=== PATIENT | male | born 1975 | race American Indian/Alaskan Native ===

== ENCOUNTER 2020-01-12 23:10 | Inpatient (IN) | payer OTHER ==
--- NOTE | 2020-01-12 23:19 | Emergency Department Report ---
ED Chest Pain HPI - General Chief Complaint: Chest Pain Stated Complaint: CHEST PAIN Time Seen by Provider: 01/12/20 23:16 Source: patient, EMS ( EMS documentation not available at time of chart dictation ), RN notes reviewed Mode of arrival: Stretcher Limitations: No Limitations - History of Present Illness Initial Comments: Patient is a 45-year-old gentleman. The patient is not known to myself previously. He reports a history of elevated blood pressure, diagnosed in [place] last year, however, he does not take antihypertensive medication at this time. Denies fever, cough, exposure to coronavirus. Presents to the ER with a complaint of 3 hours continuous chest pain, central, right-sided, left-sided. There is associated nausea, vomited x1. He reports that the chest pain does not radiate anywhere. He denies DVT and pulmonary embolism risk factors. There is no abdominal pain. There is no family history of heart disease, DVT or pulmonary embolism that he is aware of. He smokes tobacco, and occasional marijuana. There is no recent aspirin consumption. There is no complaint of abdominal pain, fever, neck pain, exertional shortness of breath, diaphoresis, leg pain, leg swelling. MD Complaint: chest pain, other -: Sudden Onset: during rest Pain Location: substernal, left chest, right chest Pain Radiation: none Severity: moderate Quality: aching Consistency: constant Improves With: nothing Worsens With: nothing Aspirin use within the Past 7 Days: (0) No - Related Data On Oral Contraceptives: No Allergies Allergy/AdvReac Type Severity Reaction Status Date / Time No Known Allergies Allergy Unverified 01/12/20 23:16 Heart Score - HEART Score History: Slightly suspicious EKG: Non-specific Age: < 45 Risk factors: 1-2 risk factors Troponin: 1-3x normal limit HEART Score: 3 - Critical Actions Critical Actions: 0-3 pts:0.9-1.7%risk of adverse cardiac event.Candidate for discharge ED Review of Systems ROS: Stated complaint: CHEST PAIN Other details as noted in HPI Constitutional: denies: fever Eyes: denies: eye discharge ENT: denies: congestion Respiratory: denies: wheezing Cardiovascular: chest pain, palpitations. denies: syncope Gastrointestinal: nausea, vomiting. denies: hematemesis, melena, hematochezia Genitourinary: as per HPI Musculoskeletal: as per HPI Skin: as per HPI Neurological: as per HPI Psychiatric: as per HPI Hematological/Lymphatic: as per HPI ED Past Medical Hx - Past Medical History Hx Hypertension: Yes - Surgical History Past Surgical History?: No - Social History Smoking Status: Current Every Day Smoker ED Physical Exam - General Limitations: No Limitations General appearance: alert, anxious - Head Head exam: Present: atraumatic, normocephalic - Eye Eye exam: Present: normal appearance, EOMI. Absent: nystagmus - ENT ENT exam: Present: normal exam, normal orophraynx, mucous membranes moist, normal external ear exam - Neck Neck exam: Present: normal inspection, full ROM. Absent: tenderness, meningismus - Respiratory Respiratory exam: Present: normal lung sounds bilaterally. Absent: respiratory distress - Cardiovascular Cardiovascular Exam: Present: normal rhythm, tachycardia, normal heart sounds. Absent: systolic murmur, diastolic murmur, rubs, gallop - GI/Abdominal GI/Abdominal exam: Present: soft. Absent: distended, tenderness, guarding, rebound, rigid, pulsatile mass - Rectal Rectal exam: Present: deferred - Extremities Exam Extremities exam: Present: normal inspection, full ROM, other (2+ pulses noted in the bilateral upper and lower extremities. There is no palpable cord. negative Homans sign. Muscular compartments are soft. The pelvis is stable.). Absent: pedal edema, calf tenderness - Back Exam Back exam: Present: normal inspection, full ROM. Absent: tenderness, CVA tenderness (R), CVA tenderness (L), paraspinal tenderness, vertebral tenderness - Neurological Exam Neurological exam: Present: alert, other (There is no facial droop. The tongue is midline. Extraocular movements are intact bilaterally. There is 5 out of 5 strength in bilateral upper and lower extremities. Sensation is intact to light touch bilateral upper and lower extremities. ). Absent: motor sensory deficit - Psychiatric Psychiatric exam: Present: anxious - Skin Skin exam: Present: warm, dry, intact, normal color. Absent: rash ED Course Vital Signs 01/12/20 01/12/20 01/12/20 23:23 23:32 23:34 Temperature 98.4 F Pulse Rate 104 H 122 H 139 H Respiratory 22 22 Rate Blood Pressure Blood Pressure 164/97 [Right] O2 Sat by Pulse 98 Oximetry 01/13/20 01/13/20 01/13/20 00:14 01:14 03:50 Temperature Pulse Rate 121 H Respiratory 18 Rate Blood Pressure 164/97 169/100 Blood Pressure [Right] O2 Sat by Pulse 99 100 Oximetry - Reevaluation(s) Reevaluation #1: 01/12/20 23:58 Differential diagnosis, including but not limited to: GERD, gastritis, hiatal hernia, pneumonia, acute coronary syndrome, pulmonary embolism, anxiety Assessment and plan: 45-year-old gentleman with a past history of elevated blood pressure, question formal diagnosis of hypertension as his hypertension diagnosis came from work-related screening, with no reported pulmonary embolism or DVT risk factors, who is low risk by Wells criteria, with constant chest pain, right-sided, left-sided and central for 3 hours. He does not endorse any cough, fever, or coronavirus exposure. We will treat his symptoms, obtain basic laboratory studies, place patient on a monitor worker, and reassess. Assuming negative troponin multiple times, we would consider the patient to be low risk for major adverse cardiac event as per the heart score. Uncertain if tachycardia physiologic compensation, or anxiety, or both. Therefore, he will be given a trial dose of Ativan. Reevaluation #2: 01/13/20 01:40 Heart rate came down to 104 bpm, and increased to 130 bpm. Patient endorsed to nursing staff that he has binocular blurry vision. He was found to have an Accu-Chek of 55 and given glucose. I went back to reevaluate the patient, and he said that he was still having binocular blurry vision. He estimates that this is been going on for around 2 hours. On my examination, his pupils are dilated, but constrict to light, extraocular movements are intact bilaterally, visual acuity is intact to finger counting, color perception, and reading at a c lose distance, however, the patient is insistent that his vision is qualitatively changes. At the moment, he has an NIH score of 0. Code stroke called overhead, neurology consultation requested emergently, and CT scan of the brain will be obtained. Reevaluation #3: 01/13/20 03:14 Repeat EKG unchanged from prior. Persistently tachycardic. Patient ate a complete meal. CT scan of the brain negative. 01/13/20 04:09 CT angiogram head and neck are negative for dissection and large vessel occlusion as expected. Patient has persistent tachycardia. He endorses that his vision feels somewhat improved. Repeat troponin is elevated and positive. I suspect that this is a type II troponin leak. On reevaluation, the patient did admit to recreational crack, cocaine, methamphetamine consumption 3 days ago. He is not currently homicidal or suicidal, and he is amenable to hospitalization for observation and monitoring. Given persistent tachycardia, the patient may result from continued and titrated doses of benzodiazepines, or beta-blockers, in addition to r blood pressure control, and glycemic monitoring. Because I believe this is a type II troponin leak, I do not believe the patient will benefit from systemic anticoagulation, and indeed with his persistent tachycardia and hypertension, recent sympathomimetic ingestion, initiation of systemic anticoagulation may place the patient at risk for bleeding, without significant clinical benefit. Patient is presented to the hospital physician, Dr. Harika Denis, who has accepted the patient to the medical service for his multiple ongoing issues. DEDRICK score - Dedrick Score Age > 65: (0) No Aspirin use within the Past 7 Days: (0) No 3 or more CAD Risk Factors: (0) No 2 or more Angina events in past 24 hrs: (0) No Known CAD with more than 50% Stenosis: (0) No Elevated Cardiac Markers: (1) Yes ST Deviation Greater than 0.5mm: (0) No DEDRICK Score: 1 ED Medical Decision Making - Lab Data Result diagrams: 01/13/20 05:25 01/13/20 05:25 Vital Signs 01/12/20 01/12/20 23:32 23:34 Temperature 98.4 F Pulse Rate 122 H 139 H Respiratory 22 Rate Blood Pressure 164/97 [Right] O2 Sat by Pulse 98 Oximetry Vital Signs 01/12/20 01/12/20 01/12/20 23:23 23:32 23:34 Temperature 98.4 F Pulse Rate 104 H 122 H 139 H Respiratory 22 22 Rate Blood Pressure Blood Pressure 164/97 [Right] O2 Sat by Pulse 98 Oximetry 01/13/20 00:14 Temperature Pulse Rate Respiratory Rate Blood Pressure 164/97 Blood Pressure [Right] O2 Sat by Pulse 99 Oximetry Lab Results 01/13/20 01/13/20 01/13/20 Range/Units 00:02 00:02 00:02 WBC 10.6 (4.5-11.0) K/mm3 RBC 4.36 (3.65-5.03) M/mm3 Hgb 14.6 (11.8-15.2) gm/dl Hct 41.6 (35.5-45.6) % MCV 95 H (84-94) fl MCH 33 H (28-32) pg MCHC 35 H (32-34) % RDW 14.1 (13.2-15.2) % Plt Count 324 (140-440) K/mm3 Lymph % (Auto) 14.9 (13.4-35.0) % C[place]ra % (Auto) 10.4 H (0.0-7.3) % Eos % (Auto) 0.4 (0.0-4.3) % Baso % (Auto) 0.5 (0.0-1.8) % Lymph # 1.6 (1.2-5.4) K/mm3 Cidra # 1.1 H (0.0-0.8) K/mm3 Eos # 0.0 (0.0-0.4) K/mm3 Baso # 0.1 (0.0-0.1) K/mm3 Seg Neutrophils % 73.8 H (40.0-70.0) % Seg Neutrophils # 7.8 H (1.8-7.7) K/mm3 PT 11.5 L (12.2-14.9) Sec. INR 0.83 L (0.87-1.13) APTT 31.2 (24.2-36.6) Sec. D-Dimer 190.39 (0-234) ng/mlDDU Sodium 139 (137-145) mmol/L Potassium 3.8 (3.6-5.0) mmol/L Chloride 101.5 (98-107) mmol/L Carbon Dioxide 20 L (22-30) mmol/L Anion Gap 21 mmol/L BUN 17 (9-20) mg/dL Creatinine 1.2 (0.8-1.5) mg/dL Estimated GFR > 60 ml/min BUN/Creatinine Ratio 14 % Glucose 80 (75-100) mg/dL POC Glucose (70-105) Calcium 9.9 (8.4-10.2) mg/dL Magnesium 2.40 H (1.7-2.3) mg/dL Total Bilirubin 0.40 (0.1-1.2) mg/dL AST 23 (5-40) units/L ALT 19 (7-56) units/L Alkaline Phosphatase 118 (35-129) units/L Total Creatine Kinase 343 H (55-170) units/L Troponin T 0.025 (0.00-0.029) ng/mL Total Protein 8.0 (6.3-8.2) g/dL Albumin 4.8 (3.9-5) g/dL Albumin/Globulin Ratio 1.5 % Lipase 20 (13-60) units/L 01/13/20 Range/Units 01:18 WBC (4.5-11.0) K/mm3 RBC (3.65-5.03) M/mm3 Hgb (11.8-15.2) gm/dl Hct (35.5-45.6) % MCV (84-94) fl MCH (28-32) pg MCHC (32-34) % RDW (13.2-15.2) % Plt Count (140-440) K/mm3 Lymph % (Auto) (13.4-35.0) % [place] % (Auto) (0.0-7.3) % Eos % (Auto) (0.0-4.3) % Baso % (Auto) (0.0-1.8) % Lymph # (1.2-5.4) K/mm3 [place] # (0.0-0.8) K/mm3 Eos # (0.0-0.4) K/mm3 Baso # (0.0-0.1) K/mm3 Seg Neutrophils % (40.0-70.0) % Seg Neutrophils # (1.8-7.7) K/mm3 PT (12.2-14.9) Sec. INR (0.87-1.13) APTT (24.2-36.6) Sec. D-Dimer (0-234) ng/mlDDU Sodium (137-145) mmol/L Potassium (3.6-5.0) mmol/L Chloride (98-107) mmol/L Carbon Dioxide (22-30) mmol/L Anion Gap mmol/L BUN (9-20) mg/dL Creatinine (0.8-1.5) mg/dL Estimated GFR ml/min BUN/Creatinine Ratio % Glucose (75-100) mg/dL POC Glucose 55 L (70-105) Calcium (8.4-10.2) mg/dL Magnesium (1.7-2.3) mg/dL Total Bilirubin (0.1-1.2) mg/dL AST (5-40) units/L ALT (7-56) units/L Alkaline Phosphatase (35-129) units/L Total Creatine Kinase (55-170) units/L Troponin T (0.00-0.029) ng/mL Total Protein (6.3-8.2) g/dL Albumin (3.9-5) g/dL Albumin/Globulin Ratio % Lipase (13-60) units/L - EKG Data -: EKG Interpreted by Me EKG shows normal: sinus rhythm Rate: tachycardia - EKG Data When compared to previous EKG there are: previous EKG unavailable 01/12/20 23:57 There is no prior EKG available for comparison. Sinus rhythm, tachycardia, 122 bpm, normal axis, QTC 482 ms, high left ventricular voltage, not a STEMI, there is no prior for comparison. - Radiology Data Radiology results: pending, report reviewed, image reviewed interpreted by me: Portable 1 view x-ray of the chest is negative for acute disease TECHNIQUE: Following acquisition of a timing bolus 0.625 mm thick contiguous axial scans were obtained from aortic arch to the skull base during rapid bolus intravenous contrast infusion. In addition to evaluation of axial source images multiplanar reconstructions were produced and reviewed for this report. 3 plane MIP reconstructions were produced and reviewed. Contrast dose report: Omnipaque 350: 100 mL administered intravenously. FINDINGS: Thoracic aorta:No abnormali ties are identified along the course of the thoracic aorta..The origins of the great vessels have an unremarkable appearance. Brachiocephalic artery, left common carotid artery origin and left subclavian artery all have an unremarkable appearance. Right carotid artery:No abnormalities are seen along the course of the RCCA, at the right carotid bifurcation or along the cervical portions of the MODESTA. Left carotid artery: No abnormalities are noted along the course of the left common carotid artery, at the left carotid bifurcation or along the course of the cervical segments of the LICA. Posterior circulation:The vertebral arteries have an unremarkable appearance. Both vertebral arteries con tribute to the basilar artery origin. The basilar artery has an unremarkable appearance. The degree of stenosis, if any, is determined utilizing NASCET like criteria. In this case there is no indication of hemodynamically significant stenosis at the carotid bifurcations or elsewhere. Evaluation of the nonvascular soft tissue is remarkable for the presence of multiple cervical lymph nodes. Lymph nodes are identified in level 1B and level 2 bilaterally. The largest of these is a left-sided level 2 lymph node measuring about 1.7 x 1.6 x 1.2 cm in size. The cervical lymph nodes are borderline in size but numerous lymph nodes are present. In addition there is a superior mediastinal mass measuring about 3.6 x 2.9 x 3.4 cm in size. Possibility of lymphoid neoplasia must be considered. Soft tissue neck has an otherwise unremarkable appearance. Lungs are free from infiltrate. No lung nodules are identified. No abnormalities are seen along the course of the airway. Thyroid gland has an unremarkable appearance as do the parotid and submandibular salivary glands. Evaluation of the cervical spine remarkable for moderate cervical spondylosis without evidence of central canal stenosis. IMPRESSION: 1. No indication of hemodynamically significant stenosis at the carotid bifurcations or elsewhere. 2. Multifocal cervical lymph nodes and large anterior mediastinal mass. Possibility of lymphoi d neoplasia must be considered. All CT examinations performed at this facility utilize modulated dose reduction, iterative reconstruction or weight-based dosing, as appropriate, to obtain a radiation dose which is as low as can reasonably be achieved. Signer Name: Justino Nino MD Signed: 01/13/2020 2:52 AM Workstation Name: [id number] Print Report Referring Physician: DIAMOND RODRIGUEZ Patient Name: QUIRINO FRANK Date of : 1975 Sex: Male Report Date: 2020-01-13 Report Status: Finalized Findings [address] [address] Cat Scan Report Signed Patient: QUIRINO FRANK MR#: [id number] 21 : 1975 Acct:[id number] Age/Sex: 45 / M ADM Date: 01/12/20 Loc: ED Attending Dr: Polly gillespie Physician: DIAMOND RODRIGUEZ MD Date of Service: 01/13/20 Procedure(s): CT head/brain wo con Accession Number(s): [id number] cc: DIAMOND RODRIGUEZ MD CT head/brain wo con INDICATION / CLINICAL INFORMATION: STROKE PROTOCOL!!! Chest pains with blurry vision. TECHNIQUE: All CT scans at this location are performed using CT dose reduction for ALARA by means of automated exposure control. COMPARISON: None available. FINDINGS: No acute intracranial hemorrhage. No signs of large territorial infarction or mass effect No abnormal extra-axial fluid collection. The ventricular system and basilar cisterns are normal. Bilateral ethmoid sinus disease is noted. No osseous abnormality IMPRESSION: 1. No acute intracranial abnormality. COMMUNICATION: Time of Communication: 0115 hours Licensed Practitioner Receiving Report: Dr. Rodriguez Signer Name: Ramon Sheehan MD Signed: 01/13/2020 2:17 AM Workstation Name: [id number] Transcribed By: ARACELIS Dictated By: Ramon Sheehan MD Electronically Authenticated By: Ramon Sheehan MD Signed Date/Time: 01/13/20216 DD/ 4 TD/TT: Critical Care Time: Yes Critical care time in (mins) excluding proc time.: 35 Critical care attestation.: If time is entered above; I have spent that time in minutes in the direct care of this critically ill patient, excluding procedure time. ED Disposition Clinical Impression: Acute chest pain, Elevated troponin, Hypoglycemia, Blurry vision Sympathomimetic adverse reaction Qualifiers: Encounter type: initial encounter Qualified Code(s): T44.905A - Adverse effect of unspecified drugs primarily affecting the autonomic nervous system, initial encounter Disposition: OP ADMIT IP TO THIS HOSP Is pt being admited?: Yes Does the pt Need Aspirin: Yes Condition: Stable
[2020-01-12] MEDS ORDERED: ONDANSETRON 4 MG/2 ML INJ IV ONE (23:52)
[2020-01-12] MEDS ORDERED: SODIUM CHLORIDE 0.9% 1000 ML 1,000 ML IV ONE (23:52)
[2020-01-12] MEDS ORDERED: FAMOTIDINE 20 MG/2 ML INJ IV ONE (23:52)
[2020-01-12] MEDS ORDERED: LORazepam 2 MG/ML VIAL IV STA (23:52)
[2020-01-13 00:26] LABS: Basophils # (Auto) 0.1 K/mm3 (0.0-0.1); Basophils % (Auto) 0.5 % (0.0-1.8); Eosinophils % (Auto) 0.4 % (0.0-4.3); Hematocrit 41.6 % (35.5-45.6); Hemoglobin 14.6 gm/dl (11.8-15.2); Lymphocytes # (Auto) 1.6 K/mm3 (1.2-5.4); Lymphocytes % (Auto) 14.9 % (13.4-35.0); Mean Corpuscular HGB Conc 35 % (32-34); Mean Corpuscular Volume 95 fl (84-94); Monocytes # (Auto) 1.1 K/mm3 (0.0-0.8); Monocytes % (Auto) 10.4 % (0.0-7.3); Platelet Count 324 K/mm3 (140-440); Red Blood Count 4.36 M/mm3 (3.65-5.03); Red Cell Distribution Width 14.1 % (13.2-15.2)
[2020-01-13 00:33] LABS: Alanine Aminotransferase 19 units/L (7-56); Albumin 4.8 g/dL (3.9-5); BUN/Creatinine Ratio 14; Blood Urea Nitrogen 17 mg/dL (9-20); Calcium 9.9 mg/dL (8.4-10.2); Hemolysis Index 10
--- NOTE | 2020-01-13 00:33 | XRay Report ---
CHEST 1 VIEW INDICATION / CLINICAL INFORMATION: cp. COMPARISON: None available. FINDINGS: SUPPORT DEVICES: None. HEART / MEDIASTINUM: No significant abnormality. LUNGS / PLEURA: No significant pulmonary or pleural abnormality. No pneumothorax. ADDITIONAL FINDINGS: No significant additional findings. IMPRESSION: 1. No acute findings. Signer Name: Ramon Sheehan MD Signed: 01/13/2020 12:29 AM Workstation Name: [id number]
[2020-01-13 00:40] LABS: INR 0.83 (0.87-1.13); Partial Thromboplastin Time 31.2 Sec. (24.2-36.6)
[2020-01-13] MEDS ORDERED: SUCRALFATE 1 GM/10 ML ORAL LIQD PO ONE (00:46)
[2020-01-13] MEDS ORDERED: DEXTROSE 50% IN WATER (25GM) 50 ML VIAL IV PRN (01:07)
--- NOTE | 2020-01-13 02:21 | Cat Scan Report ---
CT head/brain wo con INDICATION / CLINICAL INFORMATION: STROKE PROTOCOL!!! Chest pains with blurry vision. TECHNIQUE: All CT scans at this location are performed using CT dose reduction for ALARA by means of automated e xposure control. COMPARISON: None available. FINDINGS: No acute intracranial hemorrhage. No signs of large territorial infarction or mass effect No abnormal extra-axial fluid collection. The ventricular system and basilar cisterns are normal. Bilateral ethmoid sinus disease is noted. No osseous abnormality IMPRESSION: 1. No acute intracranial abnormality. COMMUNICATION: Time of Communication: 0115 hours Licensed Practitioner Receiving Report: Dr. Rodriguez Signer Name: Ramon Sheehan MD Signed: 01/13/2020 2:17 AM Workstation Name: [id number]
[2020-01-13] MEDS ORDERED: LORazepam 2 MG/ML VIAL IV STA (02:22)
--- NOTE | 2020-01-13 02:24 | Consultation ---
History of Present Illness Consult date: 01/13/20 History of present illness: [facility] Date of Service: 01/13/2020 01:42:24 Impression: Rule Out Acute Ischemic Stroke Comments/Sign-Out: 45 yo M h/o HTN p/w chest pain and blurry vision both eyes. No previous similar symptoms. Pt states he did not eat today because he did not feel well. glucose 55, was corrected. Variable exam - states he cannot see anything, able to identify all objects and read all sentences on cards and describe pictures. Says he can't see small things, pupils dilated. Mechanism of Stroke: Not Clear Metrics: Last Known Well: 01/12/2020 21:10:00 [facility] Notification Time: 01/13/2020 01:41:55 Arrival Time: 01/12/2020 23:10:00 Stamp Time: 01/13/2020 01:42:24 Time First Login Attempt: 01/13/2020 01:49:31 Video Start Time: 01/13/2020 01:49:31 Symptoms: blurry vision NIHSS Start Assessment Time: 01/13/2020 02:07:03 Patient is not a candidate for tPA. Patient was not deemed candidate for tPA thrombolytics because of Resolved symptoms (no residual disabling symptoms). CT head showed no acute hemorrhage or acute core infarct. Clinical Presentation is not Suggestive of Large Vessel Occlusive Disease Disposition: Sign Out Sign Out: Discussed with Emergency Department Provider History of Present Illness: Patient is a 45 year old Male. Patient was brought by EMS for symptoms of blurry vision 45 yo M h/o HTN p/w chest pain and blurry vision. Glucose 55. CT head showed no acute hemorrhage or acute core infarct. Examination: 1A: Level of Consciousness - Alert; keenly responsive + 0 1B: Ask Month and Age - Both Questions Right + 0 1C: Blink Eyes & Squeeze Hands - Performs Both Tasks + 0 2: Test Horizontal Extraocular Movements - Normal + 0 3: Test Visual Fairchild - No Visual Loss + 0 4: Test Facial Palsy (Use Grimace if Obtunded) - Normal symmetry + 0 5A: Test Left Arm Motor Drift - No Drift for 10 Seconds + 0 5B: Test Right Arm Motor Drift - No Drift for 10 Seconds + 0 6A: Test Left Leg Motor Drift - No Drift for 5 Seconds + 0 6B: Test Right Leg Motor Drift - No Drift for 5 Seconds + 0 7: Test Limb Ataxia (FNF/Heel-Ulrich) - No Ataxia + 0 8: Test Sensation - Mild-Moderate Loss: Less Sharp/More Dull + 1 9: Test Language/Aphasia - Normal; No aphasia + 0 10: Test Dysarthria - Normal + 0 11: Test Extinction/Inattention - No abnormality + 0 NIHSS Score: 1 Patient was informed the Neurology Consult would happen via TeleHealth consult by way of interactive audio and video telecommunications and consented to receiving care in this manner. Due to the immediate potential for life-threatening deterioration due to underlying acute neurologic illness, I spent 35 minutes providing critical care. This time includes time for face to face visit via telemedicine, review of medical records, imaging studies and discussion of findings with providers, the patient and/or family. Dr Teresa Christy [facility] Case [id number] Medications and Allergies Allergies Allergy/AdvReac Type Severity Reaction Status Date / Time No Known Allergies Allergy Unverified 01/12/20 23:16 Active Meds: Active Medications Dextrose (D50w (25gm) Vial) 50 gm IV Q30MIN PRN; Protocol PRN Reason: Hypoglycemia Last Admin: 01/13/20 01:17 Dose: 50 gm Documented by: Physical Examination - Vital Signs Vital Signs: Vital Signs Pulse Resp 104 H 22 01/12/20 23:23 01/12/20 23:23 Results - Laboratory Findings CBC and BMP: 01/13/20 00:02 01/13/20 00:02 Abnormal Lab Findings: Abnormal Labs 01/13/20 01/13/20 01/13/20 00:02 00:02 00:02 MCV 95 H MCH 33 H MCHC 35 H Rabun % (Auto) 10.4 H Rabun # 1.1 H Seg Neutrophils % 73.8 H Seg Neutrophils # 7.8 H PT 11.5 L INR 0.83 L Carbon Dioxide 20 L POC Glucose Magnesium 2.40 H Total Creatine Kinase 343 H 01/13/20 01:18 MCV MCH MCHC Rabun % (Auto) Rabun # Seg Neutrophils % Seg Neutrophils # PT INR Carbon Dioxide POC Glucose 55 L Magnesium Total Creatine Kinase
[2020-01-13 02:56] LABS: Bilirubin,Urine NEG (Negative); Blood,Urine LG (Negative); Color,Urine Straw (Yellow); Mucus,Urine FEW /HPF; Protein,Urine <15 mg/dL mg/dL (Negative); Urobilinogen,Urine < 2.0 mg/dL (<2.0)
[2020-01-13 02:57] LABS: Benzodiazepines Screen,Urine PRESUMPTIVE NEGATIVE; Cannabinoid Screen,Urine PRESUMPTIVE NEGATIVE; Methadone Screen,Urine PRESUMPTIVE NEGATIVE; Opiate Screen,Urine PRESUMPTIVE NEGATIVE
[2020-01-13 03:14] LABS: Amphetamine Screen,Urine PRESUMPTIVE POSITIVE; Cocaine Screen,Urine PRESUMPTIVE POSITIVE
[2020-01-13 03:45] LABS: Chol/HDL Ratio 6.26 %; HDL Cholesterol 50 mg/dL (40-59); LDL Cholesterol,Direct TNR mg/dL (50-130)
--- NOTE | 2020-01-13 03:57 | Cat Scan Report ---
CTA neck without and with intravenous contrast material CLINICAL HISTORY: POST STROKE PROTOCOL, Chest pains with blurred vision. TECHNIQUE: Following acquisition of a timing bolus 0.625 mm thick contiguous axial scans were obtained from aort ic arch to the skull base during rapid bolus intravenous contrast infusion. In addition to evaluation of axial source images multiplanar reconstructions were produced and reviewed for this report. 3 sara ne MIP reconstructions were produced and reviewed. Contrast dose report: Omnipaque 350: 100 mL administered intravenously. FINDINGS: Thoracic aorta:No abnormalities are identified along the course of the thoracic aorta..The origins of the great vessels have an unremarkable appearance. Brachiocephalic artery, left common carotid arter y origin and left subclavian artery all have an unremarkable appearance. Right carotid artery:No abnormalities are seen along the course of the RCCA, at the right carotid bif urcation or along the cervical portions of the MODESTA. Left carotid artery: No abnormalities are noted along the course of the left common carotid artery, a t the left carotid bifurcation or along the course of the cervical segments of the LICA. Posterior circulation:The vertebral arteries have an unremarkable appearance. Both vertebral arteries contribute to the basilar artery origin. The basilar artery has an unremarkable appearance. The degree of stenosis, if any, is determined utilizing NASCET like criteria. In this case there is no indication of hemodynamically significant stenosis at the carotid bifurcations or elsewhere. Evaluation of the nonvascular soft tissue is remarkable for the presence of multiple cervical lymph n odes. Lymph nodes are identified in level 1B and level 2 bilaterally. The largest of these is a left- sided level 2 lymph node measuring about 1.7 x 1.6 x 1.2 cm in size. The cervical lymph nodes are bor derline in size but numerous lymph nodes are present. In addition there is a superior mediastinal mas s measuring about 3.6 x 2.9 x 3.4 cm in size. Possibility of lymphoid neoplasia must be considered. S oft tissue neck has an otherwise unremarkable appearance. Lungs are free from infiltrate. No lung nod ules are identified. No abnormalities are seen along the course of the airway. Thyroid gland has an u nremarkable appearance as do the parotid and submandibular salivary glands. Evaluation of the cervical spine remarkable for moderate cervical spondylosis without evidence of maury tral canal stenosis. IMPRESSION: 1. No indication of hemodynamically significant stenosis at the carotid bifurcations or elsewhere. 2. Multifocal cervical lymph nodes and large anterior mediastinal mass. Possibility of lymphoid neopl sabrina must be considered. All CT examinations performed at this facility utilize modulated dose reduction, iterative reconstruc tion or weight-based dosing, as appropriate, to obtain a radiation dose which is as low as can reason ably be achieved. Signer Name: Justino Nino MD Signed: 01/13/2020 3:52 AM Workstation Name: [id number]
[2020-01-13] MEDS ORDERED: diazePAM 10 MG/2 ML SYRINGE IV ONE (04:02)
[2020-01-13] MEDS ORDERED: diphenhydrAMINE 50 MG/ML VIAL IV ONE (04:02)
--- NOTE | 2020-01-13 04:07 | Cat Scan Report ---
CTA head with intravenous contrast CLINICAL HISTORY: POST STROKE PROTOCOL, Chest pains with blurred vision. TECHNIQUE: 0.625 mm thick contiguous axial scans were obtained from the skull base to the skull vertex during r apid bolus administration of intravenous contrast material. Multiplanar reconstructions were produced in the coronal and sagittal planes. In addition 3 plane MIP instructions were produced and reviewed for this report. The axial source images and reconstructed images were reviewed for this report. Contrast dose report: Omnipaque 350: 100 mL administered intravenously. All CT scans at this location are performed using CT dose reduction for ALARA by means of automated e xposure control. FINDINGS: Internal carotid arteries:Allyssa, cavernous, opthalmic, clinoid and supraclinoid segments of the ICAs have an unremarkable appearance. Middle cerebral arteries: Laterally symmetrical M1 segments of both middle cerebral arteries are demo nstrated. Sylvian and opercular branches of the middle cerebral arteries have an unremarkable appeara nce. Anterior cerebral arteries: Symmetrical A1 segments are noted bilaterally. An intact anterior communi cating artery is demonstrated. The A2 segments of the anterior cerebral arteries and their opercular branches have a normal appearance. Vertebral arteries: Mild dominance of the right vertebral artery is noted. Both vertebral arteries co ntribute to the basilar artery origin. Basilar artery has a normal appearance. Basilar artery:No abnormality Posterior cerebral arteries: Normal and symmetrical posterior cerebral arteries are demonstrated. Sma ll posterior communicating arteries are identified bilaterally. Dural sinuses: Dural venous sinuses are well demonstrated on this exam. There is no evidence of dural sinus thrombosis. IMPRESSION: No significant abnormality on CTA head. No indication of intracranial stenosis or large vessel occlus ion. Signer Name: Justino Nino MD Signed: 01/13/2020 4:02 AM Workstation Name: [id number]
[2020-01-13] MEDS ORDERED: ASPIRIN 81 MG TAB CHEW PO ONE (04:12)
[2020-01-13] MEDS ORDERED: ONDANSETRON 4 MG/2 ML INJ IV PRN (05:02)
[2020-01-13] MEDS ORDERED: MORPHINE 2 MG/1 ML INJ IV PRN (05:02)
[2020-01-13] MEDS ORDERED: ACETAMINOPHEN 325 MG TAB PO PRN (05:02)
[2020-01-13] MEDS ORDERED: NITROGLYCERIN 0.4 MG TAB SUBL SL PRN (05:02)
--- NOTE | 2020-01-13 05:15 | History and Physical Report ---
History of Present Illness Date of examination: 01/13/20 Date of admission: 01/13/2020 Chief complaint: Chest pain History of present illness: 45-year-old -[place] male presenting to the emergency room today complaining of chest pain. Chest pain is said to started about 3 hours prior prior to reporting to the emergency room. Chest pain is said to be midsternal and more to the left side of his chest. He had associated nausea and vomiting, denies any diarrhea. Denies any fever or chills, and no headache or dizziness. Patient smokes tobacco and occasional marijuana, he also admits to using methamphetamine and cocaine few days ago. There is no known relieving or exacerbating factor for his chest pain. During the course of his stay in the emergency room patient was tachycardic, developed hypoglycemia and also complained of blurry vision. He was evaluated by the tele- neurologist, CT of the head and CT angiogram were within normal limits. He was given IV dextrose during the course of his stay in the emergency room. Past History Past Medical History: hypertension Past Surgical History: No surgical history Social history: smoking, other (Admits to using methamphetamine and cocaine) Medications and Allergies Allergies Allergy/AdvReac Type Severity Reaction Status Date / Time No Known Allergies Allergy Unverified 01/12/20 23:16 Active Meds: Active Medications Dextrose (D50w (25gm) Vial) 50 gm IV Q30MIN PRN; Protocol PRN Reason: Hypoglycemia Last Admin: 01/13/20 01:17 Dose: 50 gm Documented by: Review of Systems Constitutional: no fever, no chills Cardiovascular: chest pain, palpitations Respiratory: shortness of breath, no cough Gastrointestinal: no abdominal pain, no nausea, no vomiting, no diarrhea Genitourinary Male: no dysuria, no hematuria Musculoskeletal: no neck pain, no low back pain Integumentary: no rash, no pruritis Neurological: no headaches, no change in mentation Exam - Constitutional Vitals: Temp Pulse Resp BP Pulse Ox 98.4 F 121 H 22 169/100 99 01/12/20 23:32 01/13/20 03:50 01/12/20 23:32 01/13/20 03:50 01/13/20 00:14 General appearance: Present: no acute distress, well-nourished - EENT Eyes: Present: PERRL, EOM intact ENT: hearing intact, clear oral mucosa, dentition normal - Neck Neck: Present: supple, normal ROM - Respiratory Respiratory effort: normal Respiratory: bilateral: CTA - Cardiovascular Rhythm: regular Heart Sounds: Present: S1 & S2 - Extremities Extremities: no ischemia, pulses intact, pulses symmetrical, No edema, Full ROM Peripheral Pulses: within normal limits - Abdominal General gastrointestinal: Present: soft, non-tender, non-distended - Integumentary Integumentary: Present: clear, warm, dry - Musculoskeletal Musculoskeletal: strength equal bilaterally - Psychiatric Psychiatric: appropriate mood/affect, intact judgment & insight, cooperative - Neurologic Neurologic: CNII-XII intact, no focal deficits, moves all extremities Results - Labs CBC & Chem 7: 01/13/20 05:25 01/13/20 05:25 Labs: Abnormal lab results 01/13/20 01/13/20 01/13/20 Range/Units 00:02 00:02 00:02 MCV 95 H (84-94) fl MCH 33 H (28-32) pg MCHC 35 H (32-34) % Linn % (Auto) 10.4 H (0.0-7.3) % Linn # 1.1 H (0.0-0.8) K/mm3 Seg Neutrophils % 73.8 H (40.0-70.0) % Seg Neutrophils # 7.8 H (1.8-7.7) K/mm3 PT 11.5 L (12.2-14.9) Sec. INR 0.83 L (0.87-1.13) Carbon Dioxide 20 L (22-30) mmol/L POC Glucose (70-105) Magnesium 2.40 H (1.7-2.3) mg/dL Total Creatine Kinase 343 H (55-170) units/L Troponin T (0.00-0.029) ng/mL Triglycerides (2-149) mg/dL Cholesterol (50-199) mg/dL Salicylates (2.8-20.0) mg/dL Acetaminophen (10.0-30.0) ug/mL 01/13/20 01/13/20 01/13/20 Range/Units 01:18 02:19 02:19 MCV (84-94) fl MCH (28-32) pg MCHC (32-34) % Linn % (Auto) (0.0-7.3) % Linn # (0.0-0.8) K/mm3 Seg Neutrophils % (40.0-70.0) % Seg Neutrophils # (1.8-7.7) K/mm3 PT (12.2-14.9) Sec. INR (0.87-1.13) Carbon Dioxide (22-30) mmol/L POC Glucose 55 L (70-105) Magnesium (1.7-2.3) mg/dL Total Creatine Kinase (55-170) units/L Troponin T (0.00-0.029) ng/mL Triglycerides (2-149) mg/dL Cholesterol (50-199) mg/dL Salicylates 1.0 L (2.8-20.0) mg/dL Acetaminophen < 5.0 L (10.0-30.0) ug/mL 01/13/20 Range/Units 02:44 MCV (84-94) fl MCH (28-32) pg MCHC (32-34) % Linn % (Auto) (0.0-7.3) % Linn # (0.0-0.8) K/mm3 Seg Neutrophils % (40.0-70.0) % Seg Neutrophils # (1.8-7.7) K/mm3 PT (12.2-14.9) Sec. INR (0.87-1.13) Carbon Dioxide (22-30) mmol/L POC Glucose (70-105) Magnesium (1.7-2.3) mg/dL Total Creatine Kinase (55-170) units/L Troponin T 0.036 H D (0.00-0.029) ng/mL Triglycerides 546 H (2-149) mg/dL Cholesterol 313 H (50-199) mg/dL Salicylates (2.8-20.0) mg/dL Acetaminophen (10.0-30.0) ug/mL Assessment and Plan - Patient Problems (1) Acute chest pain Current Visit: Yes Status: Acute Plan to address problem: Patient admitted and placed on telemetry. Will monitor serial cardiac enzymes. Patient placed on aspirin, sublingual nitroglycerin and IV morphine as needed for chest pain. (2) Blurry vision Current Visit: Yes Status: Acute Plan to address problem: Etiology is unclear. Possibly secondary to side effects of his illicit drug use. Patient has been evaluated by telemetry neurologist and work-up has been unremarkable. We will continue to monitor. (3) Elevated troponin Current Visit: Yes Status: Acute Plan to address problem: We will place consult to cardiology for further evaluation and recommendation. (4) Hypoglycemia Current Visit: Yes Status: Acute Plan to address problem: Patient had IV dextrose in the emergency room. Will monitor blood glucose. (5) DVT prophylaxis Current Visit: Yes Status: Acute Plan to address problem: Patient placed on subcutaneous heparin (6) Full code status Current Visit: Yes Status: Acute
[2020-01-13 05:37] LABS: Basophils % (Auto) 0.6 % (0.0-1.8); Eosinophils # (Auto) 0.1 K/mm3 (0.0-0.4); Eosinophils % (Auto) 0.8 % (0.0-4.3); Hematocrit 39.6 % (35.5-45.6); Hemoglobin 13.5 gm/dl (11.8-15.2); Lymphocytes # (Auto) 2.2 K/mm3 (1.2-5.4); Lymphocytes % (Auto) 26.8 % (13.4-35.0); Mean Corpuscular HGB Conc 34 % (32-34); Mean Corpuscular Volume 96 fl (84-94); Monocytes # (Auto) 1.3 K/mm3 (0.0-0.8); Monocytes % (Auto) 15.7 % (0.0-7.3); Platelet Count 309 K/mm3 (140-440); Red Blood Count 4.14 M/mm3 (3.65-5.03); Red Cell Distribution Width 13.8 % (13.2-15.2)
[2020-01-13 05:54] LABS: BUN/Creatinine Ratio 13; Blood Urea Nitrogen 16 mg/dL (9-20); Calcium 9.1 mg/dL (8.4-10.2); Hemolysis Index 78
[2020-01-13] MEDS ORDERED: HEPARIN 5,000 UNIT/1 ML VIAL ONE (06:48)
[2020-01-13] MEDS: HEPARIN 5,000 UNIT/1 ML VIAL SUB-Q SCH ×2 (06:55→14:12)
[2020-01-13] MEDS ORDERED: REGADENOSON 0.4 MG/5 ML INJ IV ONE (07:00)
--- NOTE | 2020-01-13 12:03 | Consultation ---
History of Present Illness Consult date: 01/13/20 Consult reason: chest pain History of present illness: The patient is a 45-year-old man who presented to the hospital with atypical, nonexertional chest pain. Cardiology consultation was requested for chest pain assessment and a troponin level of 0.03. A thallium stress test was ordered by internal medicine and the results are pending. The patient's chest pain is atypical and nonexertional, poorly characterized. ECG was normal sinus rhythm, normal ECG. Chest x-ray was benign. As reported, the troponin level was minimal at 0.03. Most significant laboratory finding was an elevated triglyceride of 546. Past History Past Medical History: hypertension Past Surgical History: No surgical history Social history: smoking, other (Admits to using methamphetamine and cocaine) Medications and Allergies Allergies Allergy/AdvReac Type Severity Reaction Status Date / Time No Known Allergies Allergy Unverified 01/12/20 23:16 Active Meds: Active Medications Acetaminophen (Tylenol) 650 mg PO Q4H PRN PRN Reason: Pain MILD(1-3)/Fever >100.5/[place] Aspirin (Ecotrin) 325 mg PO QDAY [facility] Dextrose (D50w (25gm) Vial) 50 gm IV Q30MIN PRN; Protocol PRN Reason: Hypoglycemia Last Admin: 01/13/20 01:17 Dose: 50 gm Documented by: Heparin Sodium (Porcine) (Heparin) 5,000 unit SUB-Q Q8HR [facility] Last Admin: 01/13/20 06:55 Dose: 5,000 unit Documented by: Morphine Sulfate (Morphine) 2 mg IV Q5MIN PRN PRN Reason: Chest Pain unrelieved by NTG Nitroglycerin (Nitrostat) 0.4 mg SL Q5M PRN PRN Reason: Chest Pain Ondansetron HCl (Zofran) 4 mg IV Q8H PRN PRN Reason: Nausea And Vomiting Sodium Chloride (Sodium Chloride Flush Syringe 10 Ml) 10 ml IV BID [facility] Sodium Chloride (Sodium Chloride Flush Syringe 10 Ml) 10 ml IV PRN PRN PRN Reason: LINE FLUSH Review of Systems Cardiovascular: chest pain, no orthopnea, no palpitations, no rapid/irregular heart beat, no edema, no syncope, no lightheadedness, no shortness of breath Physical Examination Vital Signs Pulse Resp 104 H 22 01/12/20 23:23 01/12/20 23:23 General appearance: no acute distress HEENT: Positive: PERRL Neck: Positive: neck supple Cardiac: Positive: Reg Rate and Rhythm Lungs: Positive: Decreased Breath Sounds Neuro: Positive: Grossly Intact Abdomen: Positive: Soft Male genitourinary: Positive: deferred Skin: Positive: Clear Extremities: Absent: edema Results 01/13/20 05:25 01/13/20 05:25 Cardiac Enzymes 01/13/20 Range/Units 00:02 AST 23 (5-40) units/L Coagulation 01/13/20 Range/Units 00:02 PT 11.5 L (12.2-14.9) Sec. INR 0.83 L (0.87-1.13) APTT 31.2 (24.2-36.6) Sec. Lipids 01/13/20 Range/Units 02:44 Triglycerides 546 H (2-149) mg/dL Cholesterol 313 H (50-199) mg/dL HDL Cholesterol 50 (40-59) mg/dL Cholesterol/HDL Ratio 6.26 % CBC 01/13/20 01/13/20 Range/Units 00:02 05:25 WBC 10.6 8.3 (4.5-11.0) K/mm3 RBC 4.36 4.14 (3.65-5.03) M/mm3 Hgb 14.6 13.5 (11.8-15.2) gm/dl Hct 41.6 39.6 (35.5-45.6) % Plt Count 324 309 (140-440) K/mm3 Lymph # 1.6 2.2 (1.2-5.4) K/mm3 Hand # 1.1 H 1.3 H (0.0-0.8) K/mm3 Eos # 0.0 0.1 (0.0-0.4) K/mm3 Baso # 0.1 0.0 (0.0-0.1) K/mm3 Comprehensive Metabolic Panel 01/13/20 01/13/20 Range/Units 00:02 05:25 Sodium 139 137 (137-145) mmol/L Potassium 3.8 4.4 (3.6-5.0) mmol/L Chloride 101.5 104.2 (98-107) mmol/L Carbon Dioxide 20 L 22 (22-30) mmol/L BUN 17 16 (9-20) mg/dL Creatinine 1.2 1.2 (0.8-1.5) mg/dL Glucose 80 113 H (75-100) mg/dL Calcium 9.9 9.1 (8.4-10.2) mg/dL AST 23 (5-40) units/L ALT 19 (7-56) units/L Alkaline Phosphatase 118 (35-129) units/L Total Protein 8.0 (6.3-8.2) g/dL Albumin 4.8 (3.9-5) g/dL EKG interpretations - Telemetry EKG Rhythm: Sinus Rhythm Assessment and Plan - Patient Problems (1) Atypical chest pain Current Visit: Yes Status: Acute Plan to address problem: Patient has atypical chest pain, normal ECG, and minimal troponin levels. A thallium stress test has been ordered by internal medicine, the results are pen ding. The patient is low suspicion for acute coronary syndrome. (2) Elevated triglycerides with high cholesterol Current Visit: Yes Status: Acute Plan to address problem: We recommend aggressive risk factor modification including diet and medical therapy for triglyceride elevation, smoking cessation.
--- NOTE | 2020-01-13 13:29 | Treadmill Report ---
THALLIUM STRESS TEST LEFT VENTRICLE: Left ventricular chamber size is within normal spread. Perfusion study demonstrates homogeneous uptake of the tracer in all segments, no significant defects identified. Gated analysis demonstrates normal left ventricular systolic function with ejection fraction calculated at 70%. CONCLUSION: Normal myocardial perfusion study. JOB# [id number] CA/NTS
--- NOTE | 2020-01-13 18:17 | Discharge Summary ---
Providers - Providers Date of Admission: 01/13/20 05:58 Date of discharge: 01/13/20 Attending physician: JOSE CARLOS ESTEVEZ 01/13/20 Consult to Cardiac Rehabilitation [CONS] Routine Reason For Exam: Phase I 01/13/20 05:02 Consult to Cardiology [CONS] Routine Consulting Provider: BALDO KEMP Reason For Exam: chest pain, elevated troponin Primary care physician: [employer] Hospitalization Condition: Stable Pertinent studies: CTA head CTA neck and he to CT head no acute abnormalities Lexiscan negative Hospital course: 45-year-old -[place] male presenting to the emergency room today complaining of chest pain. Chest pain is said to started about 3 hours prior prior to reporting to the emergency room. Chest pain is said to be midsternal and more to the left side of his chest. He had associated nausea and vomiting, denies any diarrhea. Denies any fever or chills, and no headache or dizziness. Patient smokes tobacco and occasional marijuana, he also admits to using methamphetamine and cocaine few days ago. There is no known relieving or exacerbating factor for his chest pain. During the course of his stay in the emergency room patient was tachycardic, developed hypoglycemia and also complained of blurry vision. He was evaluated by the tele- neurologist, CT of the head and CT angiogram were within normal limits. He was given IV dextrose during the course of his stay in the emergency room. Lexiscan is negative (1) Acute chest pain Current Visit: Yes Status: Acute Plan to address problem: Secondary to cocaine and vasospasm Lexiscan negative (2) Blurry vision Current Visit: Yes Status: Acute Plan to address problem: Etiology is unclear. Possibly secondary to side effects of his illicit drug use. Patient has been evaluated by telemetry neurologist and work-up has been unremarkable. We will continue to monitor. Secondary to hypoglycemia No neurological deficits (3) Elevated troponin Current Visit: Yes Status: Acute Plan to address problem: We will place consult to cardiology for further evaluation and recommendation. Second and third troponin normal (4) Hypoglycemia Current Visit: Yes Status: Acute Plan to address problem: Patient had IV dextrose in the emergency room. Will monitor blood glucose. Hypoglycemia resolved (5)Cocaine and nicotine dependence Current Visit: Yes Status: Acute Plan to address problem: Patient counseled about stopping smoking and cocaine. Disposition: - TO HOME OR SELFCARE Core Measure Documentation - Palliative Care Palliative Care/ Comfort Measures: Not Applicable - Core Measures Any of the following diagnoses?: none Exam - Constitutional Vitals: Temp Pulse Resp BP Pulse Ox 99.1 F 122 H 18 141/72 98 01/13/20 12:28 01/13/20 12:28 01/13/20 12:28 01/13/20 12:28 01/13/20 12:28 General appearance: Present: no acute distress, well-nourished - EENT Eyes: Present: PERRL ENT: hearing intact, clear oral mucosa - Neck Neck: Present: supple, normal ROM - Respiratory Respiratory effort: normal Respiratory: bilateral: CTA - Cardiovascular Heart Sounds: Present: S1 & S2. Absent: rub, click - Extremities Extremities: pulses symmetrical, No edema Peripheral Pulses: within normal limits - Abdominal General gastrointestinal: Present: soft, non-tender, non-distended, normal bowel sounds Male genitourinary: Present: normal - Integumentary Integumentary: Present: clear, warm, dry - Musculoskeletal Musculoskeletal: gait normal, strength equal bilaterally - Psychiatric Psychiatric: appropriate mood/affect, intact judgment & insight - Neurologic Neurologic: CNII-XII intact, moves all extremities Plan Diet: low salt Special Instructions: keep arm in sling for 72 hours Follow up with: PRIMARY CARE, [Primary Care Provider] - 3-5 Days
[2020-01-13 20:17] VITALS: BP 152/87
[2020-01-14] MEDS ORDERED: ASPIRIN EC 325 MG TAB PO SCH (10:00)
== END 2020-01-13 21:30 | disposition home or self-care (01) | DRG 313 ==
LOC: ED 23:10 → 4A 01-13 05:58
PROVIDERS: ADMIT Internal Medicine Geriatric Medicine; ATTEND Internal Medicine
DX: R07.89 Other chest pain (principal); T40.5X5A Adverse effect of cocaine, initial encounter; E16.2 Hypoglycemia, unspecified; F17.200 Nicotine dependence, unspecified, uncomplicated; I10 Essential (primary) hypertension; E78.00 Pure hypercholesterolemia, unspecified; Y92.9 Unspecified place or not applicable
CPT/HCPCS: 36415; 70450; 70496; 70498; 71045; 78452; 80048; 80053; 80061; 80307; 80320; 81001; 82550; 82962; 83690; 83735; 84484; 85025; 85379; 85610; 85730; 93005; 93010; 93017; 93306; G0378; A9502; G0480; J1200; J1644; J2060; J2405; J2785; J3360; J7030; Q9967

== ENCOUNTER 2020-06-17 13:57 | Emergency (ER) | payer SELFPAY ==
[2020-06-17] MEDS ORDERED: DIPHtheria,PERTUSSIS(ACELL),TETANUS VACCINE/PF 0.5 ML VIAL IM ONE (16:15)
[2020-06-17] MEDS ORDERED: SODIUM CHLORIDE 0.9% 1000 ML 2,000 ML IV ONE (16:15)
--- NOTE | 2020-06-17 16:16 | Emergency Department Report ---
ED General Adult HPI - General Chief complaint: Overdose Stated complaint: ALTERED MENTAL STATUS PUI?: No Time Seen by Provider: 06/17/20 15:19 Source: patient, EMS ( EMS documentation not available at time of chart dicta tion ), RN notes reviewed, old records reviewed Mode of arrival: Stretcher Limitations: Altered Mental Status, Physical Limitation - History of Present Illness Initial comments: The patient was evaluated in the emergency department for symptoms described in the history of present illness. He/she was evaluated in the context of the global COVID-19 pandemic, which necessitated consideration that the patient might be at risk for infection with the virus that causes COVID-19. Institutional protocols and algorithms that pertain to the evaluation of patients at risk for COVID-19 are in a state of rapid change based on information released by regulatory bodies including the CDC and federal and state organizations. These policies and algorithms were followed during the patient's care in the emergency department. Please note that these policies, procedures and recommendations changed on a rapid basis. The patient is a 45-year-old gentleman. I have evaluated him in the past. The patient has a history of recreational drug consumption. He is brought to the hospital today by emergency medical services. Patient himself is altered and clinically intoxicated/impaired, therefore, history obtained by review of nursing documentation. The patient is not accompanied by friends, family at this time for additional information/collateral information As per nursing documentation: Medics state when they arrived at the scene, other adults in the house state that pt took unknown pills and they weren't concerned about him sleeping afterwards, only became concerned when pt fell and hit his head, Pt has [ injury] to left upper lip. Pt arouseable in the ER, sl combative when moving him over to the gurney, kept trying to climb off the end of the gurney, then the medics pulled him up and pt back to sleep. Medics state have given pt no meds, only IV fluids as his BP was low 90's over 60's. Over the phone, family had reported to nursing team that they believe the patient took fentanyl, heroin, and " c ball." It is not known at what time specifically the patient ingested the drugs. -: unknown Quality: other Consistency: other Improves with: other Worsens with: other Associated Symptoms: other - Related Data Previous Rx's Medication Instructions Recorded Last Taken Type Chlorhexidine Mouthwash [Peridex] 15 ml MM BID #1 bottle 06/17/20 Unknown Rx Multivitamin with Folic Acid [[facility] 400 mcg PO QDAY #30 tablet 06/17/20 Unknown Rx One Daily Essential Tablet] Naloxone HCl [Narcan Nasal [place]] 4 mg NS PRN PRN #1 spray 06/17/20 Unknown Rx Allergies Allergy/AdvReac Type Severity Reaction Status Date / Time No Known Allergies Allergy Unverified 01/12/20 23:16 ED Review of Systems ROS: Stated complaint: ALTERED MENTAL STATUS Other details as noted in HPI Comment: Unobtainable due to pts medical conditions ED Past Medical Hx - Past Medical History Previous Medical History?: Yes Hx Hypertension: Yes - Social History Smoking Status: Current Every Day Smoker - Medications Home Medications: Home Medications Medication Instructions Recorded Confirmed Last Taken Type Chlorhexidine Mouthwash [Peridex] 15 ml MM BID #1 bottle 06/17/20 Unknown Rx Multivitamin with Folic Acid [[facility] 400 mcg PO QDAY #30 tablet 06/17/20 Unknown Rx One Daily Essential Tablet] Naloxone HCl [Narcan Nasal [place]] 4 mg NS PRN PRN #1 spray 06/17/20 Unknown Rx ED Physical Exam - General Limitations: Altered Mental Status General appearance: appears intoxicated, lethargic - Head Head exam: Present: atraumatic, normocephalic - Eye Eye exam: Present: normal appearance, EOMI - ENT ENT exam: Present: normal orophraynx, mucous membranes moist, normal external ear exam, other (Patient has an abrasion and contusion to his superior lip. There is a fracture to tooth #8. There is poor dentition in general.) - Neck Neck exam: Present: normal inspection, full ROM. Absent: tenderness, meningismus - Respiratory Respiratory exam: Present: normal lung sounds bilaterally. Absent: respiratory distress - Cardiovascular Cardiovascular Exam: Present: regular rate, normal rhythm, normal heart sounds. Absent: bradycardia, tachycardia, irregular rhythm, systolic murmur, diastolic murmur, rubs, gallop - GI/Abdominal GI/Abdominal exam: Present: soft. Absent: distended, tenderness, guarding, rebound, rigid, pulsatile mass - Rectal Rectal exam: Present: deferred - Extremities Exam Extremities exam: Present: normal inspection, full ROM, other (2+ pulses noted in the bilateral upper and lower extremities. There is no palpable cord. negative Homans sign. Muscular compartments are soft. The pelvis is stable.). Absent: pedal edema, calf tenderness - Back Exam Back exam: Present: normal inspection, full ROM. Absent: tenderness, CVA tenderness (R), CVA tenderness (L), paraspinal tenderness, vertebral tenderness - Neurological Exam Neurological exam: Present: altered, other (The patient is sleeping. He intermittently becomes arousable, and moves 4 extremities. There is no obvious facial droop. The patient will follow some but not all commands. Detailed neurologic examination is not able to be completed secondary to intoxication) - Skin Skin exam: Present: warm, dry, intact, normal color. Absent: rash ED Course Vital Signs 06/17/20 06/17/20 06/17/20 14:16 14:30 14:39 Temperature 97.8 F Pulse Rate 94 H 86 Respiratory 15 14 Rate Blood Pressure 95/49 Blood Pressure 91/53 95/49 [Left] O2 Sat by Pulse 98 97 Oximetry 06/17/20 06/17/20 06/17/20 15:15 15:27 15:30 Temperature Pulse Rate 78 Respiratory 14 Rate Blood Pressure 99/61 102/64 Blood Pressure 96/67 [Left] O2 Sat by Pulse 99 Oximetry 06/17/20 06/17/20 06/17/20 15:45 16:00 16:15 Temperature Pulse Rate Respiratory Rate Blood Pressure 95/57 99/60 94/51 Blood Pressure [Left] O2 Sat by Pulse 100 Oximetry 06/17/20 06/17/20 06/17/20 17:00 17:16 17:30 Temperature Pulse Rate Respiratory Rate Blood Pressure 94/51 80/60 87/58 Blood Pressure [Left] O2 Sat by Pulse 97 98 Oximetry 06/17/20 06/17/20 06/17/20 17:45 18:00 18:16 Temperature Pulse Rate 60 Respiratory 18 Rate Blood Pressure 93/59 88/57 105/63 Blood Pressure [Left] O2 Sat by Pulse 94 97 91 Oximetry 06/17/20 06/17/20 06/17/20 18:30 18:43 19:26 Temperature Pulse Rate 62 72 60 Respiratory 18 15 16 Rate Blood Pressure 80/36 Blood Pressure 113/48 104/62 [Left] O2 Sat by Pulse 80 L 98 100 Oximetry - Reevaluation(s) Reevaluation #1: 06/17/20 18:10 Differential diagnosis, including but not limited to: Toxic encephalopathy, intracranial injury, facial injury, cervical spine injury, dehydration, polysubstance dependence Assessment and plan: 45-year-old gentleman who is clinically intoxicated, with evidence of blunt head trauma, manifest by poor dentition, fractured tooth #8, and superficial lip abrasion and contusion. CT scan of the brain, cervical spine, facial bones negative for acute traumatic disease. Patient appears to be dehydrated, IV fluids ordered and infusing. Screening laboratory studies pending, psychiatric evaluation pending. We anticipate observation in the ER pending clinical sobriety, and normalization of blood pressure. As per collateral information obtained from nursing team, the patient has a known history of drug dependence, and the only reason family called today is because of blunt facial trauma. Reevaluation #2: 06/17/20 20:00 blood pressure is markedly improved. Patient now much more awake. He is alert to name, month, and location. He is remorseful for using recreational drugs. However, he states he is not homicidal or suicidal. He states he can have a family member come by and pick him up. He has superior lip pain, but otherwise, denies midline neck pain, chest pain, abdominal pain, shortness of breath and urinary symptoms. Given this, this is most likely an illicit drug ingestion Patient has been observed in this ER for 6 hours, and he is clinically improved. - EJ/Peripheral Line Neck L Time Out Performed: Yes Indications: nurses unable to establis Skin Cleansed in Sterile Fashion: Yes Size: 20 Dressing Placed: Tegaderm Patient Tolerated Procedure: well ED Medical Decision Making - Lab Data Result diagrams: 06/17/20 16:15 06/17/20 16:15 Vital Signs 06/17/20 06/17/20 06/17/20 14:16 14:39 15:27 Temperature 97.8 F Pulse Rate 94 H 86 78 Respiratory 15 14 14 Rate Blood Pressure 91/53 95/49 96/67 [Left] O2 Sat by Pulse 100 97 99 Oximetry Lab Results 06/17/20 Range/Units 16:15 Hgb 13.0 (11.8-15.2) gm/dl Hct 38.9 (35.5-45.6) % Plt Count 327 (140-440) K/mm3 Lab Results 06/17/20 06/17/20 06/17/20 Range/Units 16:15 16:15 16:15 Hgb 13.0 (11.8-15.2) gm/dl Hct 38.9 (35.5-45.6) % Plt Count 327 (140-440) K/mm3 PT 13.4 (12.2-14.9) Sec. INR 1.00 (0.87-1.13) APTT 28.6 (24.2-36.6) Sec. Sodium 142 (137-145) mmol/L Potassium 3.8 (3.6-5.0) mmol/L Chloride 105.9 (98-107) mmol/L Carbon Dioxide 21 L (22-30) mmol/L Anion Gap 19 mmol/L BUN 17 (9-20) mg/dL Creatinine 1.4 H (0.8-1.3) mg/dL Estimated GFR > 60 ml/min BUN/Creatinine Ratio 12 % Glucose 94 (75-100) mg/dL Calcium 9.4 (8.4-10.2) mg/dL Total Bilirubin 0.70 (0.1-1.2) mg/dL AST 16 (5-40) units/L ALT 17 (7-56) units/L Alkaline Phosphatase 70 (35-129) units/L Total Creatine Kinase 153 (55-170) units/L Total Protein 7.2 (6.3-8.2) g/dL Albumin 4.0 (3.9-5) g/dL Albumin/Globulin Ratio 1.3 % Salicylates (2.8-20.0) mg/dL Acetaminophen (10.0-30.0) ug/mL Plasma/Serum Alcohol (0-0.07) % 06/17/20 06/17/20 06/17/20 Range/Units 16:15 16:15 16:15 Hgb (11.8-15.2) gm/dl Hct (35.5-45.6) % Plt Count (140-440) K/mm3 PT (12.2-14.9) Sec. INR (0.87-1.13) APTT (24.2-36.6) Sec. Sodium (137-145) mmol/L Potassium (3.6-5.0) mmol/L Chloride (98-107) mmol/L Carbon Dioxide (22-30) mmol/L Anion Gap mmol/L BUN (9-20) mg/dL Creatinine (0.8-1.3) mg/dL Estimated GFR ml/min BUN/Creatinine Ratio % Glucose (75-100) mg/dL Calcium (8.4-10.2) mg/dL Total Bilirubin (0.1-1.2) mg/dL AST (5-40) units/L ALT (7-56) units/L Alkaline Phosphatase (35-129) units/L Total Creatine Kinase (55-170) units/L Total Protein (6.3-8.2) g/dL Albumin (3.9-5) g/dL Albumin/Globulin Ratio % Salicylates < 0.3 L (2.8-20.0) mg/dL Acetaminophen 5.0 L (10.0-30.0) ug/mL Plasma/Serum Alcohol < 0.01 (0-0.07) % - EKG Data -: EKG Interpreted by [facility] EKG shows normal: sinus rhythm Rate: normal - EKG Data 06/17/20 18:04 Sinus rhythm, 73 bpm, normal axis, QTC 426 ms, high left ventricular voltage, motion artifact. This EKG is not a STEMI. The EKG appears to be unchanged from prior EKG from January 2020 - Radiology Data Radiology results: report reviewed, image reviewed CHEST 1 VIEW 06/17/2020 3:57 PM INDICATION / CLINICAL INFORMATION: Altered mental status. COMPARISON: 01/12/2020 FINDINGS: SUPPORT DEVICES: None. HEART / MEDIASTINUM: No significant abnormality. LUNGS / PLEURA: No significant pulmonary or pleural abnormality. No pneumothorax. ADDITIONAL FINDINGS: No significant additional findings. IMPRESSION: 1. No acute findings. Signer Name: Dale Patricia MD Signed: 06/17/2020 3:59 PM Workstation Name: [id number] CT BRAIN: 06/17/2020 INDICATION / CLINICAL INFORMATION: blunt head trauma. COMPARISON: 01/13/2020 FINDINGS: BRAIN/INTRACRANIAL STRUCTURES: Unenhanced CT images of the brain were obtained and compared to the prior exam from 01/13/2020. There has been no change. There is no evidence of acute abnormality. Ventricles and sulci are normal in size and shape. There is no evidence of ischemic in jury, hemorrhage, or mass. There are no abnormal extra-axial fluid collections. EXTRACRANIAL STRUCTURES: Unremarkable. IMPRESSION: No acute abnormality. All CT scans at this location are performed using dose reduction to ALARA by means of automated exposure control. Signer Name: Ankur Guzman MD Signed: 06/17/2020 4:07 PM Workstation Name: [id number] FACIAL CT 06/17/2020 HISTORY: Trauma FINDINGS: CT images of the facial bones were obtained. Images are evaluated in the axial, coronal, and sagittal planes. There is no evidence of acute osseous injury. Paranasal sinuses are clear. 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 There is evidence of periodontal disease. IMPRESSION: No evidence of acute osseous injury or fracture. All CT scans at this location are performed using dose reduction to ALARA by means of automated exposure control. Signer Name: Ankur Guzman MD Signed: 06/17/2020 4:[address] CERVICAL SPINE: 06/17/2020 INDICATION / CLINICAL INFORMATION: Trauma. COMPARISON: None available. FINDINGS: CT images of the cervical spine were obtained. Images are evaluated in the axial, coronal, and sagittal planes. There is no evidence of acute abnormality. Vertebral body height and alignment is well preserved. Mild left convex scoliosis is present. : . CRANIOCERVICAL JUNCTION: Unremarkable. 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 This is an incidental finding. IMPRESSION: No acute abnormality. All CT scans at this location are performed using dose reduction to ALARA by means of automated exposure control. Signer Name: Ankur Guzman MD Signed: 06/17/2020 4:04 PM Workstation Name: [id number] Critical care attestation.: If time is entered above; I have spent that time in minutes in the direct care of this critically ill patient, excluding procedure time. ED Disposition Clinical Impression: Polysubstance abuse Closed head injury Qualifiers: Encounter type: initial encounter Qualified Code(s): S09.90XA - Unspecified injury of head, initial encounter Dental injury Qualifiers: Encounter type: initial encounter Qualified Code(s): S09.93XA - Unspecified injury of face, initial encounter Disposition: - TO HOME OR SELFCARE Is pt being admited?: No Does the pt Need Aspirin: No Condition: Stable Additional Instructions: Please drink at least 6 cups of water per day for the foreseeable future. Do not drive or operate motor vehicles until cleared to do so by a primary care doctor. Follow-up with your primary care doctor within the next week. Follow-up with a dentist as soon as possible. Patient may take [id number] Tylenol as needed for pain. Recommend that patient avoid consumption of recreational drugs. Consumption of recreational drugs may cause addiction, disability, , paralysis, loss of quality of life, and impaired decision-making. Advance diet as tolerated. Please return to the emergency room right away with new pain, worsening pain, migration of pain, projectile vomiting, change in mental status, confusion, in ability to tolerate liquid feeds, new, worsened or different symptoms not present on the initial emergency room evaluation. Prescriptions: Multivitamin with Folic Acid [[facility]vs One Daily Essential Tablet] 400 mcg PO QDAY #30 tablet Naloxone HCl [Narcan Nasal [place]] 4 mg NS PRN PRN #1 spray PRN Reason: Opioid Reversal Chlorhexidine Mouthwash [Peridex] 15 ml MM BID #1 bottle Referrals: [facility] [Outside] - 3-5 Days [facility] [Provider Group] - 3-5 Days Time of Disposition: 20:01 (Patient may be discharged when he has a family member come by to pick him up)
--- NOTE | 2020-06-17 17:04 | XRay Report ---
CHEST 1 VIEW 06/17/2020 3:57 PM INDICATION / CLINICAL INFORMATION: Altered mental status. COMPARISON: 01/12/2020 FINDINGS: SUPPORT DEVICES: None. HEART / MEDIASTINUM: No significant abnormality. LUNGS / PLEURA: No significant pulmonary or pleural abnormality. No pneumothorax. ADDITIONAL FINDINGS: No significant additional findings. IMPRESSION: 1. No acute findings. Signer Name: Dale Patricia MD Signed: 06/17/2020 4:59 PM Workstation Name: [id number]
--- NOTE | 2020-06-17 17:08 | Cat Scan Report ---
CT CERVICAL SPINE: 06/17/2020 INDICATION / CLINICAL INFORMATION: Trauma. COMPARISON: None available. FINDINGS: CT images of the cervical spine were obtained. Images are evaluated in the axial, coronal, and sagitt al planes. There is no evidence of acute abnormality. Vertebral body height and alignment is well preserved. Mild left convex scoliosis is present. : . CRANIOCERVICAL JUNCTION: Unremarkable. 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 This is an incidental finding. IMPRESSION: No acute abnormality. All CT scans at this location are performed using dose reduction to ALARA by means of automated expos ure control. Signer Name: Ankur Guzman MD Signed: 06/17/2020 5:04 PM Workstation Name: [id number]
--- NOTE | 2020-06-17 17:12 | Cat Scan Report ---
CT BRAIN: 06/17/2020 INDICATION / CLINICAL INFORMATION: blunt head trauma. COMPARISON: 01/13/2020 FINDINGS: BRAIN/INTRACRANIAL STRUCTURES: Unenhanced CT images of the brain were obtained and compared to the pr ior exam from 01/13/2020. There has been no change. There is no evidence of acute abnormality. Ventricles and sulci are normal in size and shape. There is no evidence of ischemic injury, hemorrhage, or mass. There are no abnormal extra-axial fluid collections. EXTRACRANIAL STRUCTURES: Unremarkable. IMPRESSION: No acute abnormality. All CT scans at this location are performed using dose reduction to ALARA by means of automated expos ure control. Signer Name: Ankur Guzman MD Signed: 06/17/2020 5:07 PM Workstation Name: [id number]
--- NOTE | 2020-06-17 17:15 | Cat Scan Report ---
FACIAL CT 06/17/2020 HISTORY: Trauma FINDINGS: CT images of the facial bones were obtained. Images are evaluated in the axial, coronal, an d sagittal planes. There is no evidence of acute osseous injury. Paranasal sinuses are clear. There is evidence of prior sinus cavity surgery with anterior nasal sept al defect noted. 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 There is evidence of periodontal disease. IMPRESSION: No evidence of acute osseous injury or fracture. All CT scans at this location are performed using dose reduction to ALARA by means of automated expos ure control. Signer Name: Ankur Guzman MD Signed: 06/17/2020 5:10 PM Workstation Name: [id number]
[2020-06-17 17:55] LABS: Hematocrit 38.9 % (35.5-45.6)
[2020-06-17 18:09] LABS: Partial Thromboplastin Time 28.6 Sec. (24.2-36.6)
[2020-06-17] MEDS ORDERED: SODIUM CHLORIDE 0.9% 1000 ML 1,000 ML IV ONE (18:11)
[2020-06-17 18:19] LABS: Alanine Aminotransferase 17 units/L (7-56); BUN/Creatinine Ratio 12; Blood Urea Nitrogen 17 mg/dL (9-20); Calcium 9.4 mg/dL (8.4-10.2); Hemolysis Index 75
[2020-06-17 19:27] VITALS: BP 104/62
== END 2020-06-17 21:23 | disposition home or self-care (01) ==
LOC: ED 13:57
DX: S09.93XA Unspecified injury of face, initial encounter (principal); S09.90XA Unspecified injury of head, initial encounter; F19.10 Other psychoactive substance abuse, uncomplicated; I10 Essential (primary) hypertension; F17.200 Nicotine dependence, unspecified, uncomplicated; Z79.899 Other long term (current) drug therapy
CPT/HCPCS: 36415; 70450; 70486; 71045; 72125; 80053; 82550; 85014; 85018; 85049; 85610; 85730; 90471; 90715; 93005; 96360; 96361; 99285; J7030; 80320; G0480

== ENCOUNTER 2020-06-22 20:49 | Emergency (ER) | payer SELFPAY ==
[2020-06-22] MEDS ORDERED: NALOXONE 2 MG/2 ML INJ ONE (20:53)
[2020-06-22] MEDS ORDERED: ONDANSETRON 4 MG/2 ML INJ ONE (20:55)
--- NOTE | 2020-06-22 21:04 | Emergency Department Report ---
History of Present Illness - General Stated Complaint: HEROIN OVERDOSE Time Seen by Provider: 06/22/20 20:58 Source: patient, EMS - History of Present Illness Initial Comments: Patient is 45 years old male with history of substance abuse. Patient brought to the emergency room via EMS from home for evaluation of heroin overdose. Patient was released from rehab today and he told his mother that he took heroin this afternoon. EMS stated that when arrived patient is obtunded but responds to painful stimuli. Initial oxygen saturation was 90% on room air improved to 98% on nasal cannula 2 L/min. Patient is breathing approximately 12 breaths/min. Blood pressure is 96/52. Upon arrival to the ER patient is obtunded and not responding even to painful stimuli. 2 mg of IV Narcan immediately given and patient immediately start working up. Patient admitted that he took heroin today but he was not trying to kill himself he just wanted to get high. Patient denied any homicidal ideation. No visual or auditory hallucination. MD Complaint: accidental overdose -: This afternoon How Overdose Was Discovered: called family/friend Context: Accidental Overdose: wanted to get high Treatments Prior to Arrival: oxygen - Related Data Previous Rx's Medication Instructions Recorded Last Taken Type Chlorhexidine Mouthwash [Peridex] 15 ml MM BID #1 bottle 06/17/20 Unknown Rx Multivitamin with Folic Acid [[facility] 400 mcg PO QDAY #30 tablet 06/17/20 Unknown Rx One Daily Essential Tablet] Naloxone HCl [Narcan Nasal Grandy] 4 mg NS PRN PRN #1 spray 06/17/20 Unknown Rx Allergies Allergy/AdvReac Type Severity Reaction Status Date / Time No Known Allergies Allergy Unverified 01/12/20 23:16 ED Review of Systems ROS: Stated complaint: HEROIN OVERDOSE Other details as noted in HPI Comment: All other systems reviewed and negative Constitutional: denies: chills, fever Respiratory: denies: cough, shortness of breath, SOB with exertion, wheezing Cardiovascular: denies: chest pain, palpitations Gastrointestinal: denies: abdominal pain, nausea, vomiting, diarrhea, constipation, hematemesis, melena Musculoskeletal: denies: back pain Neurological: denies: headache, weakness, numbness, paresthesias, confusion ED Past Medical Hx - Past Medical History Hx Hypertension: Yes - Social History Smoking Status: Current Every Day Smoker - Medications Home Medications: Home Medications Medication Instructions Recorded Confirmed Last Taken Type Chlorhexidine Mouthwash [Peridex] 15 ml MM BID #1 bottle 06/17/20 Unknown Rx Multivitamin with Folic Acid [[facility] 400 mcg PO QDAY #30 tablet 06/17/20 Unknown Rx One Daily Essential Tablet] Naloxone HCl [Narcan Nasal Grandy] 4 mg NS PRN PRN #1 spray 06/17/20 Unknown Rx ED Physical Exam - General General appearance: obtunded - Head Head exam: Present: atraumatic, normocephalic, normal inspection - Eye Eye exam: Present: normal appearance - ENT ENT exam: Present: normal exam, normal orophraynx, mucous membranes moist - Neck Neck exam: Present: normal inspection, full ROM. Absent: tenderness, meningismus - Respiratory Respiratory exam: Present: normal lung sounds bilaterally - Cardiovascular Cardiovascular Exam: Present: regular rate, normal rhythm, normal heart sounds - GI/Abdominal GI/Abdominal exam: Present: soft, normal bowel sounds. Absent: distended, tenderness, guarding, rebound, rigid, organomegaly, mass, bruit, pulsatile mass, hernia - Extremities Exam Extremities exam: Present: normal inspection, full ROM, normal capillary refill. Absent: pedal edema, calf tenderness - Back Exam Back exam: Present: normal inspection, full ROM. Absent: CVA tenderness (R), CVA tenderness (L) - Neurological Exam Neurological exam: Present: alert, oriented X3, CN II-XII intact, normal gait, reflexes normal - Psychiatric Psychiatric exam: Present: normal mood - Skin Skin exam: Present: warm, intact, normal color ED Course Vital Signs 06/22/20 06/22/20 06/22/20 20:50 20:58 21:00 Temperature 98.2 F Pulse Rate 74 Respiratory 20 Rate Blood Pressure 129/89 O2 Sat by Pulse 100 100 100 Oximetry 06/22/20 06/22/20 06/22/20 21:16 21:30 21:46 Temperature Pulse Rate 72 76 Respiratory 12 28 H 19 Rate Blood Pressure 129/89 129/89 129/89 O2 Sat by Pulse 100 100 97 Oximetry 06/22/20 06/22/20 06/22/20 22:00 22:16 22:30 Temperature Pulse Rate Respiratory Rate Blood Pressure 129/89 129/89 129/89 O2 Sat by Pulse 98 98 98 Oximetry 06/22/20 06/22/20 06/22/20 22:46 23:00 23:15 Temperature Pulse Rate Respiratory Rate Blood Pressure 129/89 129/89 151/102 O2 Sat by Pulse 96 94 96 Oximetry 06/22/20 06/22/20 06/23/20 23:30 23:45 00:00 Temperature Pulse Rate Respiratory Rate Blood Pressure 151/97 176/111 173/116 O2 Sat by Pulse 99 96 99 Oximetry 06/23/20 00:16 Temperature Pulse Rate Respiratory Rate Blood Pressure 183/139 O2 Sat by Pulse Oximetry ED Medical Decision Making - Lab Data Result diagrams: 06/22/20 21:10 06/22/20 21:10 - EKG Data -: EKG Interpreted by Pr EKG shows normal: sinus rhythm - EKG Data Interpretation: no acute changes - Medical Decision Making Patient is 45 years old male with history of substance abuse. Patient brought to the emergency room via EMS from home for evaluation of heroin overdose. Patient was released from rehab today and he told his mother that he took heroin this afternoon. EMS stated that when arrived patient is obtunded but responds to painful stimuli. Initial oxygen saturation was 90% on room air improved to 98% on nasal cannula 2 L/min. Patient is breathing approximately 12 breaths/min. Blood pressure is 96/52. Upon arrival to the ER patient is obtund ed and not responding even to painful stimuli. 2 mg of IV Narcan immediately given and patient immediately start working up. Patient admitted that he took heroin today but he was not trying to kill himself he just wanted to get high. Patient denied any homicidal ideation. No visual or auditory hallucination. Labs reviewed and is unremarkable except for positive UDS for opiates and benzodiazepine and cocaine. Patient started on Narcan drip. Patient is being alert and oriented. Will stop Narcan drip at 4 AM and patient will be observed for 2 hours and then will be discharged home as patient stated that he does not want a mental health assessment. Critical Care Time: Yes Critical care time in (mins) excluding proc time.: 30 Critical care attestation.: If time is entered above; I have spent that time in minutes in the direct care of this critically ill patient, excluding procedure time. ED Disposition Clinical Impression: Acute respiratory failure, Accidental drug overdose Disposition: DC-01 TO HOME OR SELFCARE Is pt being admited?: No Condition: Stable Instructions: Polysubstance Abuse (ED) Referrals: PRIMARY CARE, [Primary Care Provider] - 3-5 Days
[2020-06-22] MEDS ORDERED: SODIUM CHLORIDE 0.9% 1000 ML 1,000 ML IV ONE (21:05)
[2020-06-22] MEDS ORDERED: NALOXONE 0.4 MG/1 ML INJ IV ONE (21:06)
[2020-06-22] MEDS ORDERED: NALOXONE 2 MG/2 ML 2 MG in SODIUM CHLORIDE 0.9% 500 ML 500 ML IV ONE (21:06)
[2020-06-22] MEDS ORDERED: ONDANSETRON 4 MG/2 ML INJ IV ONE (21:06)
[2020-06-22 21:41] LABS: Basophils # (Auto) 0.1 K/mm3 (0.0-0.1); Basophils % (Auto) 0.5 % (0.0-1.8); Eosinophils # (Auto) 0.2 K/mm3 (0.0-0.4); Eosinophils % (Auto) 1.9 % (0.0-4.3); Hematocrit 37.2 % (35.5-45.6); Hemoglobin 12.1 gm/dl (11.8-15.2); Lymphocytes # (Auto) 3.9 K/mm3 (1.2-5.4); Lymphocytes % (Auto) 33.7 % (13.4-35.0); Mean Corpuscular HGB Conc 33 % (32-34); Mean Corpuscular Volume 98 fl (84-94); Monocytes # (Auto) 1.5 K/mm3 (0.0-0.8); Monocytes % (Auto) 12.9 % (0.0-7.3); Platelet Count 280 K/mm3 (140-440); Red Cell Distribution Width 13.9 % (13.2-15.2)
[2020-06-22 21:44] LABS: BUN/Creatinine Ratio 10; Blood Urea Nitrogen 13 mg/dL (9-20); Calcium 9.5 mg/dL (8.4-10.2); Hemolysis Index 20
[2020-06-23 01:20] LABS: Bacteria,Urine 1+ /HPF (Negative); Bilirubin,Urine NEG (Negative); Blood,Urine MOD (Negative); Color,Urine Yellow (Yellow); Mucus,Urine 1+ /HPF; Protein,Urine <15 mg/dL mg/dL (Negative); Urobilinogen,Urine < 2.0 mg/dL (<2.0)
[2020-06-23 01:28] LABS: Amphetamine Screen,Urine PRESUMPTIVE NEGATIVE; Benzodiazepines Screen,Urine PRESUMPTIVE POSITIVE; Cannabinoid Screen,Urine PRESUMPTIVE NEGATIVE; Cocaine Screen,Urine PRESUMPTIVE POSITIVE; Methadone Screen,Urine PRESUMPTIVE NEGATIVE; Opiate Screen,Urine PRESUMPTIVE POSITIVE
[2020-06-23 07:14] VITALS: BP 143/97
== END 2020-06-23 09:15 | disposition home or self-care (01) ==
LOC: ED 20:49
DX: T50.991A Poisoning by other drugs, medicaments and biological substances, accidental (unintentional), initial encounter (principal); J96.00 Acute respiratory failure, unspecified whether with hypoxia or hypercapnia; I10 Essential (primary) hypertension; F17.200 Nicotine dependence, unspecified, uncomplicated; Z79.899 Other long term (current) drug therapy; Y92.89 Other specified places as the place of occurrence of the external cause
CPT/HCPCS: 36415; 80048; 80307; 81001; 85025; 93005; 96365; 96366; 96375; 99291; J2310; J2405; J7030; J7040; 80320; G0480